=== PATIENT | female | born 1995 | race African-American/Black ===

== ENCOUNTER → 2016-06-19 | Outpatient (CLI) | payer OTHER ==
[~2016-06-19] MED LIST: SEASONIQUE 01 TABLET PO
== END | disposition home or self-care (01) ==
DX: R13.0 Aphagia (principal); R13.10 Dysphagia, unspecified; V89.2XXD Person injured in unspecified motor-vehicle accident, traffic, subsequent encounter
CPT/HCPCS: 92611 GN

== ENCOUNTER 2016-07-20 14:54 | Emergency (ER) | payer OTHER ==
[~2016-07-20] VITALS: Ht 157.5 cm; Wt 59.0 kg
[2016-07-20 16:54] LABS: HEMATOCRIT 40.5 % (36.0-46.0); MCH 28.9 PG (29.0-34.0); MCHC 32.3 G/DL (30.0-36.0); MCV 89.2 FL (83-99); MEAN PLAT.VOLUME 9.1 uM^3 (9.5-12.4); PLATELET COUNT 247 K/uL (156-360); RBC DIS.WIDTH-CV 12.8 % (11.8-14.6); RED BLOOD COUNT 4.54 M/uL (3.80-5.20); WHITE BLOOD COUNT 6.2 K/uL (4.1-10.2)
[2016-07-20 17:04] LABS: CHLORIDE 109 mEq/L (99-109); SODIUM 138 mEq/L (136-147)
[2016-07-20 17:06] LABS: GLUCOSE 101 mg/dL (70-99)
[2016-07-20 17:08] LABS: ANION GAP 9 MEQ/L (2-14)
[2016-07-20 17:10] LABS: GFR ESTIMATE (CALCULATED) > 59 mL/min/
[2016-07-20 17:11] LABS: UREA NITROGEN (BUN) 11 mg/dL (9-23)
[2016-07-20 19:00] VITALS: BP 113/72
== END 2016-07-20 22:19 | disposition short-term general hospital (02) ==
LOC: EME 14:54
PROVIDERS: Emergency Medicine
DX: I61.9 Nontraumatic intracerebral hemorrhage, unspecified (principal); R41.82 Altered mental status, unspecified; Z87.820 Personal history of traumatic brain injury
CPT/HCPCS: 70450; 70551; 80048; 85027; 99281; 99285

== ENCOUNTER 2017-06-23 12:55 | Emergency (ER) | payer OTHER ==
[~2017-06-23] VITALS: Ht 157.5 cm; Wt 67.4 kg
[2017-06-23 14:23] LABS: HEMATOCRIT 39.7 % (36.0-46.0); HEMOGLOBIN 13.1 G/DL (11.9-15.5); MCH 29.7 PG (29.0-34.0); PLATELET COUNT 268 K/uL (156-360); RBC DIS.WIDTH-CV 13.9 % (11.8-14.6); RED BLOOD COUNT 4.41 M/uL (3.80-5.20); WHITE BLOOD COUNT 7.8 K/uL (4.1-10.2)
[2017-06-23 14:34] LABS: CHLORIDE 108 mEq/L (99-109); POTASSIUM 4.6 mEq/L (3.7-5.4); SODIUM 138 mEq/L (136-147)
[2017-06-23 14:35] LABS: GLUCOSE 86 mg/dL (70-99)
[2017-06-23 14:39] LABS: CREATININE 0.8 mg/dL (0.6-1.3); GFR ESTIMATE (CALCULATED) > 59 mL/min/
[2017-06-23 14:40] LABS: UREA NITROGEN (BUN) 15 mg/dL (9-23)
[2017-06-23 14:48] LABS: TROP-I INTERPRETATION NEGATIVE; TROPONIN-I < 0.01 ng/mL (0.0-0.30)
[2017-06-23 17:56] LABS: TROP-I INTERPRETATION NEGATIVE; TROPONIN-I < 0.01 ng/mL (0.0-0.30)
[2017-06-23 18:46] VITALS: BP 115/80
== END 2017-06-23 18:47 | disposition home or self-care (01) ==
LOC: EME 12:55
PROVIDERS: Nurse Practitioner Family
DX: R07.9 Chest pain, unspecified (principal); R10.13 Epigastric pain; Z87.820 Personal history of traumatic brain injury
CPT/HCPCS: 71046; 80048; 84484; 85027; 93005; 99281; 99284